=== PATIENT | male | born 1955 | race Caucasian/White ===

== ENCOUNTER 2019-08-24 07:55 | Outpatient (REF) | payer OTHER, SELFPAY ==
[2019-08-24 22:51] LABS: ALT 40 U/L (16-63); AST 21 U/L (15-37); Albumin 4.3 g/dL (3.4-5.0); Alkaline Phosphatase 50 U/L (46-116); Anion Gap 11.5 mmol/L (3-11); BUN 20 mg/dL (7-18); Bilirubin, Total 0.6 mg/dL (0.2-1.0); CO2 26.5 mmol/L (21.0-32.0); Calcium 9.2 mg/dL (8.5-10.1); Calculated LDL 79 mg/dL; Chloride 103 mmol/L (98-107); Cholesterol 160 mg/dL (<200); Glucose 131 mg/dL (74-106); HDL Cholesterol 31 mg/dL (40-60); Potassium 4.8 mmol/L (3.5-5.1); Sodium 141 mmol/L (136-145); Total Protein 7.2 g/dL (6.4-8.2); Triglyceride 250 mg/dL (<150)
== END 2019-08-24 08:15 ==
LOC: NCHCN 07:55
PROVIDERS: PCP Family Medicine; Visit Provider Family Medicine
DX: E11.9 Type 2 diabetes mellitus without complications (principal); E78.5 Hyperlipidemia, unspecified; I10 Essential (primary) hypertension
CPT/HCPCS: 80053; 80061; 83036

== ENCOUNTER 2019-12-14 21:15 | Outpatient (REF) | payer OTHER, SELFPAY ==
[2019-12-14 21:16] LABS: ALT 42 U/L (16-63); AST 24 U/L (15-37); Albumin 4.3 g/dL (3.4-5.0); Alkaline Phosphatase 46 U/L (46-116); Anion Gap 9.7 mmol/L (3-11); BUN 17 mg/dL (7-18); Bilirubin, Total 0.8 mg/dL (0.2-1.0); CO2 27.3 mmol/L (21.0-32.0); CREATININE 1.14 mg/dL (0.70-1.30); Calcium 9.2 mg/dL (8.5-10.1); Chloride 104 mmol/L (98-107); Glucose 105 mg/dL (74-106); Potassium 4.4 mmol/L (3.5-5.1); Sodium 141 mmol/L (136-145); Total Protein 7.1 g/dL (6.4-8.2)
[2019-12-14 21:23] LABS: Hemoglobin A1C 6.4 % (3.8-5.6)
[2019-12-14 21:36] LABS: Calculated LDL 74 mg/dL (<100); Cholesterol 150 mg/dL (<200); HDL Cholesterol 32 mg/dL (40-60); Triglyceride 222 mg/dL (<150)
== END 2019-12-14 21:35 ==
LOC: NCHCN 21:15
PROVIDERS: PCP Family Medicine; Visit Provider Family Medicine
DX: I10 Essential (primary) hypertension (principal); E78.41 Elevated Lipoprotein(a); E11.9 Type 2 diabetes mellitus without complications
CPT/HCPCS: 80053; 80061; 83036

== ENCOUNTER 2020-04-11 13:42 | Outpatient (REF) | payer OTHER, SELFPAY ==
[2020-04-11 19:55] LABS: Anion Gap 11.2 mmol/L (3-11); BUN 16 mg/dL (7-18); CO2 26.8 mmol/L (21.0-32.0); CREATININE 1.19 mg/dL (0.70-1.30); Calcium 9.7 mg/dL (8.5-10.1); Chloride 102 mmol/L (98-107); Glucose 163 mg/dL (74-106); Potassium 4.2 mmol/L (3.5-5.1); Sodium 140 mmol/L (136-145)
== END 2020-04-11 14:02 ==
LOC: NCHCN 13:42
PROVIDERS: PCP Family Medicine; Visit Provider Family Medicine
DX: I10 Essential (primary) hypertension (principal)
CPT/HCPCS: 80048

== ENCOUNTER 2020-12-05 14:52 | Outpatient (REF) | payer OTHER, SELFPAY ==
[2020-12-05 13:28] LABS: Hemoglobin A1C 6.1 % (<5.7)
[2020-12-05 13:35] LABS: ALT 49 U/L (16-63); AST 26 U/L (15-37); Albumin 4.3 g/dL (3.4-5.0); Alkaline Phosphatase 46 U/L (46-116); Anion Gap 11.8 mmol/L (3-11); BUN 19 mg/dL (7-18); Bilirubin, Total 0.6 mg/dL (0.2-1.0); CO2 26.2 mmol/L (21.0-32.0); CREATININE 1.2 mg/dL (0.70-1.30); Calcium 9.7 mg/dL (8.5-10.1); Calculated LDL 77 mg/dL (<100); Chloride 107 mmol/L (98-107); Cholesterol 153 mg/dL (<200); Glucose 122 mg/dL (74-106); HDL Cholesterol 33 mg/dL (40-60); Potassium 4.2 mmol/L (3.5-5.1); Sodium 145 mmol/L (136-145); Total Protein 7.4 g/dL (6.4-8.2); Triglyceride 219 mg/dL (<150)
== END 2020-12-05 14:53 | disposition home or self-care (01) ==
LOC: NCHCN 14:52
PROVIDERS: PCP Family Medicine; Visit Provider Family Medicine
DX: Z00.00 Encounter for general adult medical examination without abnormal findings (principal); E11.9 Type 2 diabetes mellitus without complications; I10 Essential (primary) hypertension; E78.41 Elevated Lipoprotein(a)
CPT/HCPCS: 80053; 80061; 83036

== ENCOUNTER 2021-01-02 13:25 | Outpatient (REF) | payer OTHER, SELFPAY ==
[2021-01-02 13:55] LABS: Anion Gap 10.1 mmol/L (3-11); BUN 17 mg/dL (7-18); CO2 27.9 mmol/L (21.0-32.0); CREATININE 1.1 mg/dL (0.70-1.30); Calcium 9.7 mg/dL (8.5-10.1); Chloride 103 mmol/L (98-107); Glucose 128 mg/dL (74-106); Sodium 141 mmol/L (136-145)
== END 2021-01-02 13:26 | disposition home or self-care (01) ==
LOC: NCHCN 13:25
PROVIDERS: PCP Family Medicine; Visit Provider Family Medicine
DX: E11.9 Type 2 diabetes mellitus without complications (principal); I10 Essential (primary) hypertension; E78.41 Elevated Lipoprotein(a); E78.1 Pure hyperglyceridemia; E66.9 Obesity, unspecified
CPT/HCPCS: 80048

== ENCOUNTER 2021-10-13 14:27 | Outpatient (REF) | payer MEDICARE, SELFPAY ==
[2021-10-13 21:44] LABS: Hemoglobin A1C 6.1 % (<5.7)
[2021-10-13 22:00] LABS: ALT 56 U/L (16-63); AST 36 U/L (15-37); Albumin 4.7 g/dL (3.4-5.0); Alkaline Phosphatase 56 U/L (46-116); Anion Gap 9.8 mmol/L (3-11); BUN 19 mg/dL (7-18); Bilirubin, Total 0.6 mg/dL (0.2-1.0); CO2 27.2 mmol/L (21.0-32.0); CREATININE 1.1 mg/dL (0.70-1.30); Calcium 9.6 mg/dL (8.5-10.1); Calculated LDL 74 mg/dL (<100); Chloride 101 mmol/L (98-107); Cholesterol 183 mg/dL (<200); Glucose 93 mg/dL (74-106); HDL Cholesterol 35 mg/dL (40-60); Potassium 4.3 mmol/L (3.5-5.1); Sodium 138 mmol/L (136-145); Total Protein 7.8 g/dL (6.4-8.2); Triglyceride 371 mg/dL (<150)
== END 2021-10-13 14:28 | disposition home or self-care (01) ==
LOC: NCHCN 14:27
PROVIDERS: PCP Family Medicine; Visit Provider Family Medicine
DX: E78.1 Pure hyperglyceridemia (principal); E11.9 Type 2 diabetes mellitus without complications; I10 Essential (primary) hypertension
CPT/HCPCS: 80053; 80061; 83036

== ENCOUNTER 2022-04-10 18:44 | Outpatient (REF) | payer MEDICARE, SELFPAY ==
[2022-04-10 21:21] LABS: COMMENT (LAB VIEW ONLY) 51.29 mg/dL; Microalb ug/mg Crea 11.7 ug/mg Cr
== END 2022-04-10 18:45 | disposition home or self-care (01) ==
LOC: NCHCN 18:44
PROVIDERS: PCP Family Medicine; Visit Provider Family Medicine
DX: E11.9 Type 2 diabetes mellitus without complications (principal)
CPT/HCPCS: 82043; 82570

== ENCOUNTER 2022-10-09 12:50 | Outpatient (REF) | payer MEDICARE, SELFPAY ==
[2022-10-09 15:45] LABS: ALT 55 U/L (16-63); AST 51 U/L (15-37); Albumin 4.3 g/dL (3.4-5.0); Alkaline Phosphatase 55 U/L (46-116); Anion Gap 8.5 mmol/L (3-11); BUN 17 mg/dL (7-18); Bilirubin, Total 0.8 mg/dL (0.2-1.0); CO2 27.5 mmol/L (21.0-32.0); CREATININE 1.2 mg/dL (0.70-1.30); Calcium 9.9 mg/dL (8.5-10.1); Calculated LDL 71 mg/dL (<100); Chloride 103 mmol/L (98-107); Cholesterol 173 mg/dL (<200); Glucose 165 mg/dL (74-106); HDL Cholesterol 36 mg/dL (40-60); Sodium 139 mmol/L (136-145); Total Protein 7.5 g/dL (6.4-8.2); Triglyceride 334 mg/dL (<150)
[2022-10-09 16:33] LABS: Hemoglobin A1C 6.6 % (<5.7)
== END 2022-10-09 12:51 | disposition home or self-care (01) ==
LOC: NCHCN 12:50
PROVIDERS: PCP Family Medicine; Visit Provider Family Medicine
DX: E78.41 Elevated Lipoprotein(a) (principal); E11.9 Type 2 diabetes mellitus without complications; I10 Essential (primary) hypertension
CPT/HCPCS: 80053; 80061; 83036

== ENCOUNTER 2023-04-16 16:20 | Outpatient (REF) | payer MEDICARE, SELFPAY ==
[2023-04-16 16:38] LABS: Hemoglobin A1C 6.3 % (<5.7)
[2023-04-16 16:43] LABS: ALT 56 U/L (16-63); AST 36 U/L (15-37); Albumin 4.3 g/dL (3.4-5.0); Alkaline Phosphatase 42 U/L (46-116); Anion Gap 9.3 mmol/L (3-11); BUN 20 mg/dL (7-18); Bilirubin, Total 0.8 mg/dL (0.2-1.0); CO2 28.7 mmol/L (21.0-32.0); CREATININE 1.2 mg/dL (0.70-1.30); Calcium 9.6 mg/dL (8.5-10.1); Calculated LDL 77 mg/dL (<100); Chloride 103 mmol/L (98-107); Cholesterol 156 mg/dL (<200); Estimated GFR 66.28 (mL/min/1.73m2); Glucose 124 mg/dL (74-106); HDL Cholesterol 32 mg/dL (40-60); Sodium 141 mmol/L (136-145); Total Protein 7.4 g/dL (6.4-8.2); Triglyceride 235 mg/dL (<150)
== END 2023-04-16 16:21 | disposition home or self-care (01) ==
LOC: NCHCN 16:20
PROVIDERS: PCP Family Medicine; Visit Provider Family Medicine
DX: E78.41 Elevated Lipoprotein(a) (principal); E11.9 Type 2 diabetes mellitus without complications; I10 Essential (primary) hypertension
CPT/HCPCS: 80053; 80061; 83036

== ENCOUNTER 2023-10-21 14:50 | Outpatient (REF) | payer MEDICARE, SELFPAY ==
[2023-10-21 16:04] LABS: ALT 65 U/L (16-63); AST 46 U/L (15-37); Albumin 4.1 g/dL (3.4-5.0); Alkaline Phosphatase 35 U/L (46-116); Anion Gap 7.3 mmol/L (3-11); BUN 20 mg/dL (7-18); Bilirubin, Total 0.7 mg/dL (0.2-1.0); CO2 28.7 mmol/L (21.0-32.0); CREATININE 1.3 mg/dL (0.70-1.30); Calcium 9.5 mg/dL (8.5-10.1); Calculated LDL 73 mg/dL (<100); Chloride 101 mmol/L (98-107); Cholesterol 142 mg/dL (<200); Estimated GFR 60.21 (mL/min/1.73m2); Glucose 168 mg/dL (74-106); HDL Cholesterol 34 mg/dL (40-60); Potassium 4.3 mmol/L (3.5-5.1); Sodium 137 mmol/L (136-145); Total Protein 7.2 g/dL (6.4-8.2); Triglyceride 178 mg/dL (<150)
== END 2023-10-21 14:51 | disposition home or self-care (01) ==
LOC: NCHCN 14:50
PROVIDERS: PCP Family Medicine; Visit Provider Family Medicine
DX: E78.41 Elevated Lipoprotein(a) (principal); I10 Essential (primary) hypertension; E11.9 Type 2 diabetes mellitus without complications
CPT/HCPCS: 80053; 80061; 82043; 82570

== ENCOUNTER 2024-04-23 09:05 | Outpatient (REF) | payer MEDICARE, BC, SELFPAY ==
[2024-04-23 14:52] LABS: ALT 45 U/L (16-63); AST 28 U/L (15-37); Albumin 4.1 g/dL (3.4-5.0); Alkaline Phosphatase 47 U/L (46-116); Bilirubin, Direct 0.2 mg/dL (0.0-0.2); Total Protein 7.3 g/dL (6.4-8.2)
[2024-04-23 15:43] LABS: Hemoglobin A1C 6.6 % (<5.7)
== END 2024-04-23 09:06 | disposition home or self-care (01) ==
LOC: NCHCN 09:05
PROVIDERS: PCP Family Medicine; Visit Provider Family Medicine
DX: E11.9 Type 2 diabetes mellitus without complications (principal); R94.5 Abnormal results of liver function studies
CPT/HCPCS: 80076; 83036

== ENCOUNTER 2024-10-29 08:35 | Outpatient (REF) | payer MEDICARE, BC, SELFPAY ==
[2024-10-29 15:47] LABS: ALT 48 U/L (16-63); AST 32 U/L (15-37); Albumin 4.4 g/dL (3.4-5.0); Alkaline Phosphatase 62 U/L (46-116); Anion Gap 7.6 mmol/L (3-11); BUN 18 mg/dL (7-18); CO2 30.4 mmol/L (21.0-32.0); CREATININE 1.4 mg/dL (0.70-1.30); Calcium 9.8 mg/dL (8.5-10.1); Calculated LDL 77 mg/dL (<100); Chloride 103 mmol/L (98-107); Cholesterol 161 mg/dL (<200); Estimated GFR 54.75 (mL/min/1.73m2); Glucose 165 mg/dL (74-106); HDL Cholesterol 34 mg/dL (40-60); Potassium 4.3 mmol/L (3.5-5.1); Sodium 141 mmol/L (136-145); Total Protein 7.7 g/dL (6.4-8.2); Triglyceride 253 mg/dL (<150)
[2024-10-29 15:56] LABS: Hemoglobin A1C 7.2 % (<5.7)
== END 2024-10-29 08:36 | disposition home or self-care (01) ==
LOC: NCHCN 08:35
PROVIDERS: PCP Family Medicine; Visit Provider Family Medicine
DX: E78.1 Pure hyperglyceridemia (principal); E11.9 Type 2 diabetes mellitus without complications
CPT/HCPCS: 80053; 80061; 83036

== ENCOUNTER 2025-05-06 14:55 | Outpatient (REF) | payer MEDICARE, BC, SELFPAY ==
[2025-05-06 14:46] LABS: Hemoglobin A1C 6.5 % (<5.7)
[2025-05-06 14:47] LABS: ALT 45 U/L (16-63); AST 28 U/L (15-37); Albumin 4.0 g/dL (3.4-5.0); Alkaline Phosphatase 43 U/L (46-116); Anion Gap 5.4 mmol/L (3-11); BUN 18 mg/dL (7-18); Bilirubin, Total 0.8 mg/dL (0.2-1.0); CO2 29.6 mmol/L (21.0-32.0); Calcium 9.5 mg/dL (8.5-10.1); Calculated LDL 76 mg/dL (<100); Chloride 104 mmol/L (98-107); Cholesterol 139 mg/dL (<200); Estimated GFR 59.47 (mL/min/1.73m2); Glucose 140 mg/dL (74-106); HDL Cholesterol 32 mg/dL (>or=40); Potassium 4.2 mmol/L (3.5-5.1); Sodium 139 mmol/L (136-145); Total Protein 7.0 g/dL (6.4-8.2); Triglyceride 159 mg/dL (<150)
== END 2025-05-06 14:56 | disposition home or self-care (01) ==
LOC: NCHCN 14:55
PROVIDERS: PCP Family Medicine; Visit Provider Family Medicine
DX: E78.2 Mixed hyperlipidemia (principal); E11.9 Type 2 diabetes mellitus without complications
CPT/HCPCS: 80053; 80061; 83036